=== PATIENT | female | born 1955 | race Caucasian/White ===

== ENCOUNTER 2019-03-07 10:00 | Observation (INO) ==
[2019-03-07] MEDS ORDERED: Nitroglycerin 0.4 MG TAB.SUBL SL PRN (10:09)
[2019-03-07 10:23] LABS: Basophils % 0.4 %; Eosinophils # 0.1 K/mcL (0.0-0.6); Eosinophils % 1.4 %; Hematocrit 40.3 % (35.3-44.9); Hemoglobin 12.8 g/dL (11.5-15.4); Immature Granulocytes % 0.3 % (0-4); Lymphocytes # 2.1 K/mcL (0.6-4.6); Lymphocytes % 28.6 %; Mean Corpuscular HGB Conc 31.8 g/dL (31.6-35.5); Mean Corpuscular Hemoglobin 32.3 pg (28.0-33.3); Mean Corpuscular Volume 101.8 fL (83.0-100.0); Mean Platelet Volume 9.9 fL (9.4-12.4); Monocytes # 0.4 K/mcL (0.0-1.3); Monocytes % 4.8 %; Neutrophils # 4.7 K/mcL (1.6-8.9); Platelet Count 182 K/mcL (140-400); Red Blood Count 3.96 M/mcL (3.82-4.97); Red Cell Distribution Width 13.2 % (11.5-14.5); Segmented Neutrophils % 64.5 %; White Blood Count 7.3 K/mcL (4.3-11.1)
[2019-03-07 10:29] LABS: Prothrombin Time 11.1 Seconds (9.4-12.1)
[2019-03-07 10:32] LABS: Activated Partial Thrombo Time 34.1 Seconds (26.0-36.0)
[2019-03-07] MEDS ORDERED: Prochlorperazine 10 MG/2 ML VIAL IVP ONE (10:38)
[2019-03-07] MEDS ORDERED: Aspirin 81 MG TAB.CHEW PO STA (10:43)
[2019-03-07 10:48] LABS: BUN/Creatinine Ratio 14 (6-26); Blood Urea Nitrogen 12 mg/dL (8-23); Calcium 9.4 mg/dL (8.6-10.3); Carbon Dioxide 29 mEq/L (23-29); Chloride 106 mEq/L (98-107); Glucose 107 mg/dL (70-105); Osmolality,Calculated 290 (280-300); Sodium 140 mEq/L (136-145); Troponin I < 0.03 ng/mL (< 0.04); eGFR For African Americans > 60 (> 60); eGFR For Non-African Americans > 60 (> 60)
[2019-03-07] MEDS ORDERED: Ondansetron 4 MG/2 ML VIAL IVP PRN (12:56)
[2019-03-07] MEDS ORDERED: *HR* HYDROcodone/Acet 5/325 mg TABLET PO PRN (12:56)
[2019-03-07] MEDS ORDERED: Naloxone 0.4 MG/ML INJ IVP PRN (12:56)
[2019-03-07] MEDS ORDERED: Acetaminophen 325 MG TABLET PO PRN (12:56)
[2019-03-07] MEDS ORDERED: Fluticasone Propionate Nasal 50 MCG/SPRAY BOTTLE NS PRN (13:00)
[2019-03-07] MEDS ORDERED: Diphenoxylate/Atropine 1 TAB TABLET PO SCH (13:00)
[2019-03-07] MEDS ORDERED: 0.9 % Sodium Chloride 1,000 ML IVC SCH (15:30)
[2019-03-08 07:00] LABS: Chol/HDL Ratio 2.9 (0-4.9)
[2019-03-08] MEDS ORDERED: Aspirin Enteric Coated 81 MG Tablet PO SCH (09:00)
[2019-03-08] MEDS ORDERED: Diphenoxylate/Atropine 1 TAB TABLET PO SCH (09:00)
[2019-03-08] MEDS ORDERED: Isosorbide MONOnitrate (24 HR) 30 MG TAB.ER.24H PO SCH (14:23)
[2019-03-08 15:53] VITALS: BP 132/83
[2019-03-08] MEDS ORDERED: *HR* Heparin 5,000 UNIT/ML VIAL SQ SCH (18:00)
== END 2019-03-08 17:19 | disposition home or self-care (01) ==
LOC: EMEROOARM 10:00 → 3BNU 10:00 → SUATTDRO 13:37 → 3BNU 14:05
PROVIDERS: ADMIT Family Medicine; ATTEND Internal Medicine

== ENCOUNTER 2019-04-20 08:34 | Observation (INO) ==
[2019-04-20] MEDS ORDERED: 0.9 % Sodium Chloride 1,000 ML IVC ONE (09:06)
[2019-04-20] MEDS ORDERED: *HR* FentaNYL (PF) 100 MCG/2 ML VIAL IVP ONE ×3 (09:06→11:04)
[2019-04-20 09:21] LABS: Bilirubin,Urine Negative (Negative); Blood,Urine Large (Negative); Clarity,Urine Cloudy (Clear); Glucose,Urine (UA) Normal (Normal); Ketones,Urine Negative (Negative); Leukocyte Esterase,Urine Moderate (Negative); Nitrite,Urine Negative (Negative); Protein,Urine 30 mg/dL (Neg-Trace); Specific Gravity,Urine 1.024 (1.010-1.025); Urobilinogen,Urine Normal (Normal)
[2019-04-20 09:22] LABS: Color,Urine Yellow (Yellow)
[2019-04-20 09:23] LABS: Bacteria,Urine None Seen per hpf (None-Few); Hyaline Casts,Urine None Seen per lpf (None-Few); RBC,Urine TNTC per hpf (0-3); Squamous Epithelial Cell,Urine Many per lpf (None-Few); WBC,Urine 15-30 per hpf (0-3)
[2019-04-20 09:37] LABS: Basophils % 0.4 %; Eosinophils # 0.1 K/mcL (0.0-0.6); Hematocrit 37.7 % (35.3-44.9); Immature Granulocytes % 0.3 % (0-4); Lymphocytes # 1.8 K/mcL (0.6-4.6); Lymphocytes % 25.1 %; Mean Corpuscular HGB Conc 31.8 g/dL (31.6-35.5); Mean Corpuscular Hemoglobin 31.9 pg (28.0-33.3); Mean Corpuscular Volume 100.3 fL (83.0-100.0); Monocytes # 0.4 K/mcL (0.0-1.3); Monocytes % 5.9 %; Neutrophils # 4.7 K/mcL (1.6-8.9); Platelet Count 171 K/mcL (140-400); Red Blood Count 3.76 M/mcL (3.82-4.97); Red Cell Distribution Width 12.6 % (11.5-14.5); Segmented Neutrophils % 66.3 %; White Blood Count 7.1 K/mcL (4.3-11.1)
[2019-04-20 09:59] LABS: Calcium 9.3 mg/dL (8.6-10.3); Potassium 4.6 mEq/L (3.5-5.1)
[2019-04-20] MEDS ORDERED: Ondansetron 4 MG/2 ML VIAL IVP PRN ×3 (13:59→20:14)
[2019-04-20] MEDS ORDERED: Naloxone 0.4 MG/ML INJ IVP PRN ×2 (13:59→20:14)
[2019-04-20] MEDS ORDERED: 0.9 % Sodium Chloride 1,000 ML IVC SCH ×2 (14:00→20:14)
[2019-04-20] MEDS ORDERED: ceFAZolin 2,000 MG in Water for inj. (sterile) 20 ML IVP ONE (18:03)
[2019-04-20] MEDS ORDERED: *HR* Propofol 200 MG/20 ML VIAL IVP ONE (18:18)
[2019-04-20] MEDS ORDERED: Ondansetron 4 MG/2 ML VIAL ONE (18:18)
[2019-04-20] MEDS ORDERED: *HR* FentaNYL (PF) 100 MCG/2 ML VIAL ONE (18:18)
[2019-04-20] MEDS ORDERED: *HR* Midazolam HCl 2 MG/2 ML VIAL ONE (18:18)
[2019-04-20] MEDS ORDERED: Lidocaine -MPF 2% 2 ML VIAL ONE (18:18)
[2019-04-20] MEDS ORDERED: EPHEDrine 50 MG/ML VIAL ONE (18:58)
[2019-04-20] MEDS ORDERED: Ketorolac 30 MG/ML VIAL ONE (19:00)
[2019-04-20] MEDS ORDERED: *HR* Promethazine 25 MG/ML VIAL IVP PRN (19:10)
[2019-04-20] MEDS ORDERED: *HR* Labetalol 20 MG/4 ML SYRINGE IVP PRN (19:10)
[2019-04-20] MEDS: *HR* OxyCODONE Immed Rel 5 MG TABLET PO PRN ×2 (19:33→19:48)
[2019-04-20] MEDS ORDERED: Ringers Solution, Lactated 1,000 ML ONE (20:05)
[2019-04-21 07:09] VITALS: BP 125/78
[2019-04-21 09:45] LABS: Hematocrit 35.7 % (35.3-44.9); Hemoglobin 11.5 g/dL (11.5-15.4); Mean Corpuscular HGB Conc 32.2 g/dL (31.6-35.5); Mean Corpuscular Hemoglobin 32.5 pg (28.0-33.3); Mean Corpuscular Volume 100.8 fL (83.0-100.0); Mean Platelet Volume 9.6 fL (9.4-12.4); Platelet Count 129 K/mcL (140-400); Red Blood Count 3.54 M/mcL (3.82-4.97); Red Cell Distribution Width 12.6 % (11.5-14.5); White Blood Count 6.5 K/mcL (4.3-11.1)
[2019-04-21 10:04] LABS: Calcium 8.6 mg/dL (8.6-10.3); Potassium 3.8 mEq/L (3.5-5.1)
[2019-04-25 09:51] LABS: Calculi Mass 216 mg
== END 2019-04-21 12:15 | disposition home or self-care (01) ==
LOC: EMEROOARM 08:34 → 3ANU 08:34 → SUATTDRO 12:42 → 3ANU 15:28
PROVIDERS: ADMIT Family Medicine; ATTEND Internal Medicine

== ENCOUNTER 2020-01-24 13:53 | Observation (INO) ==
[2020-01-24 14:31] LABS: Basophils % 0.5 %; Eosinophils # 0.1 K/mcL (0.0-0.6); Eosinophils % 1.4 %; Hematocrit 43.4 % (35.3-44.9); Hemoglobin 13.8 g/dL (11.5-15.4); Immature Granulocytes % 0.3 % (0-4); Lymphocytes # 3.1 K/mcL (0.6-4.6); Lymphocytes % 39.4 %; Mean Corpuscular HGB Conc 31.8 g/dL (31.6-35.5); Mean Corpuscular Hemoglobin 32.3 pg (28.0-33.3); Mean Corpuscular Volume 101.6 fL (83.0-100.0); Mean Platelet Volume 9.9 fL (9.4-12.4); Monocytes # 0.5 K/mcL (0.0-1.3); Monocytes % 6.1 %; Neutrophils # 4.1 K/mcL (1.6-8.9); Platelet Count 205 K/mcL (140-400); Red Blood Count 4.27 M/mcL (3.82-4.97); Segmented Neutrophils % 52.3 %; White Blood Count 7.8 K/mcL (4.3-11.1)
[2020-01-24] MEDS ORDERED: 0.9 % Sodium Chloride 1,000 ML IVC ONE (14:35)
[2020-01-24] MEDS ORDERED: *HR* Metoprolol 5 MG/5 ML VIAL IVP ONE (14:35)
[2020-01-24 14:53] LABS: BUN/Creatinine Ratio 20 (6-26); Blood Urea Nitrogen 17 mg/dL (8-23); Calcium 9.8 mg/dL (8.6-10.3); Carbon Dioxide 27 mEq/L (23-29); Chloride 105 mEq/L (98-107); Glucose 97 mg/dL (70-105); Magnesium 1.9 mg/dL (1.6-2.6); Osmolality,Calculated 289 (280-300); Phosphorous 3.1 mg/dL (2.7-4.5); Potassium 3.7 mEq/L (3.5-5.1); Sodium 139 mEq/L (136-145); Troponin I < 0.03 ng/mL (< 0.04); eGFR For African Americans > 60 (> 60); eGFR For Non-African Americans > 60 (> 60)
[2020-01-24 15:06] LABS: Thyroid Stimulating Hormone 0.305 mcIU/mL (0.340-5.600)
[2020-01-24 16:02] LABS: Triiodothyronine (T3) Free 3.27 pg/mL (2.50-3.90)
[2020-01-24] MEDS ORDERED: Ondansetron 4 MG/2 ML VIAL IVP PRN (17:11)
[2020-01-24] MEDS ORDERED: Naloxone 0.4 MG/ML INJ IVP PRN (17:11)
[2020-01-24] MEDS ORDERED: Perflutren Lipid Microsphere 1.3 ML in 0.9 % Sodium Chloride 8.7 ML IVP PRN (17:13)
[2020-01-24] MEDS ORDERED: *HR* Metoprolol 5 MG/5 ML VIAL IVP PRN (17:13)
[2020-01-24] MEDS ORDERED: *HR* Heparin 5,000 UNIT/ML VIAL IVP PRN ×2 (17:16)
[2020-01-24] MEDS ORDERED: *HR* Heparin 5,000 UNIT/ML VIAL IVP ONE (17:16)
[2020-01-24] MEDS ORDERED: Nitroglycerin 0.4 MG TAB.SUBL SL PRN (17:18)
[2020-01-24 18:12] LABS: Hematocrit 41.3 % (35.3-44.9); Mean Corpuscular HGB Conc 31.5 g/dL (31.6-35.5); Mean Corpuscular Hemoglobin 31.7 pg (28.0-33.3); Mean Corpuscular Volume 100.7 fL (83.0-100.0); Mean Platelet Volume 10.1 fL (9.4-12.4); Platelet Count 179 K/mcL (140-400); Red Cell Distribution Width 13.1 % (11.5-14.5); White Blood Count 7.2 K/mcL (4.3-11.1)
[2020-01-24 18:14] LABS: Heparin anti-factor XA UFH < 0.04 IU/mL (0.30-0.70)
[2020-01-24] MEDS: Aspirin 81 MG TAB.CHEW PO SCH (18:19)
[2020-01-24] MEDS: lisinopriL 10 MG TABLET PO SCH (18:19)
[2020-01-24] MEDS: Heparin 25,000UNIT/250ML 1/2NS 25,000 UNIT/250 ML IV.SOLN IVC SCH (18:55)
[2020-01-24] MEDS ORDERED: *HR* Labetalol 20 MG/4 ML SYRINGE IVP ONE (19:24)
[2020-01-24] MEDS ORDERED: Acetaminophen 325 MG TABLET PO ONE (20:47)
[2020-01-24] MEDS ORDERED: Melatonin 3 MG TABLET PO ONE (23:22)
[2020-01-25 03:24] LABS: Hematocrit 40.7 % (35.3-44.9); Mean Corpuscular HGB Conc 31.9 g/dL (31.6-35.5); Mean Corpuscular Hemoglobin 32.2 pg (28.0-33.3); Mean Corpuscular Volume 100.7 fL (83.0-100.0); Mean Platelet Volume 10.4 fL (9.4-12.4); Platelet Count 175 K/mcL (140-400); Red Blood Count 4.04 M/mcL (3.82-4.97); Red Cell Distribution Width 13.2 % (11.5-14.5); White Blood Count 8.8 K/mcL (4.3-11.1)
[2020-01-25 03:40] LABS: BUN/Creatinine Ratio 20 (6-26); Blood Urea Nitrogen 16 mg/dL (8-23); Calcium 9.2 mg/dL (8.6-10.3); Carbon Dioxide 24 mEq/L (23-29); Chloride 107 mEq/L (98-107); Glucose 103 mg/dL (70-105); Osmolality,Calculated 289 (280-300); Potassium 3.8 mEq/L (3.5-5.1); Sodium 139 mEq/L (136-145); eGFR For African Americans > 60 (> 60); eGFR For Non-African Americans > 60 (> 60)
[2020-01-25 03:41] LABS: Chol/HDL Ratio 2.6 (0-4.9); Phosphorous 4.1 mg/dL (2.7-4.5)
[2020-01-25] MEDS: lisinopriL 10 MG TABLET PO SCH (08:56)
[2020-01-25] MEDS: Aspirin 81 MG TAB.CHEW PO SCH (08:56)
[2020-01-25] MEDS: *HR* Rivaroxaban 10 MG TABLET PO SCH ×2 (16:45→17:04)
[2020-01-25] MEDS: Heparin 25,000UNIT/250ML 1/2NS 25,000 UNIT/250 ML IV.SOLN IVC SCH (16:46)
[2020-01-25] MEDS: Metoprolol 100 MG TABLET PO SCH (20:11)
[2020-01-25] MEDS ORDERED: Metoprolol 100 MG TABLET PO SCH (21:00)
[2020-01-26 02:23] LABS: Basophils % 0.4 %; Eosinophils # 0.1 K/mcL (0.0-0.6); Eosinophils % 1.7 %; Hematocrit 41.8 % (35.3-44.9); Immature Granulocytes % 0.3 % (0-4); Lymphocytes # 3.1 K/mcL (0.6-4.6); Lymphocytes % 40.9 %; Mean Corpuscular HGB Conc 31.1 g/dL (31.6-35.5); Mean Corpuscular Hemoglobin 31.6 pg (28.0-33.3); Mean Corpuscular Volume 101.5 fL (83.0-100.0); Monocytes # 0.5 K/mcL (0.0-1.3); Monocytes % 6.2 %; Neutrophils # 3.9 K/mcL (1.6-8.9); Platelet Count 155 K/mcL (140-400); Red Blood Count 4.12 M/mcL (3.82-4.97); Red Cell Distribution Width 13.2 % (11.5-14.5); Segmented Neutrophils % 50.5 %; White Blood Count 7.6 K/mcL (4.3-11.1)
[2020-01-26 02:43] LABS: BUN/Creatinine Ratio 17 (6-26); Blood Urea Nitrogen 14 mg/dL (8-23); Calcium 9.4 mg/dL (8.6-10.3); Carbon Dioxide 26 mEq/L (23-29); Chloride 106 mEq/L (98-107); Glucose 95 mg/dL (70-105); Osmolality,Calculated 290 (280-300); Sodium 140 mEq/L (136-145); eGFR For African Americans > 60 (> 60); eGFR For Non-African Americans > 60 (> 60)
[2020-01-26 07:02] VITALS: BP 123/80
[2020-01-26] MEDS: Metoprolol 100 MG TABLET PO SCH (08:38)
[2020-01-26] MEDS: Aspirin 81 MG TAB.CHEW PO SCH (08:38)
== END 2020-01-26 11:25 | disposition home or self-care (01) ==
LOC: 3BNU 13:53 → EMEROOARM 13:53 → SUATTDRO 15:59 → 3BNU 16:50
PROVIDERS: ADMIT Internal Medicine; ATTEND Student in an Organized Health Care Education/Training Program

== ENCOUNTER 2021-08-11 06:09 | Inpatient (IN) ==
[2021-08-11] MEDS ORDERED: 0.9 % Sodium Chloride 1,000 ML ONE ×2 (06:35→07:10)
[2021-08-11] MEDS ORDERED: *HR* Heparin 10,000 UNIT/10 ML VIAL ONE (07:09)
[2021-08-11] MEDS ORDERED: Protamine Sulfate 50 MG/5 ML VIAL IVP ONE (07:09)
[2021-08-11] MEDS ORDERED: ISOVUE-370 200 ML INFUS..BTL ONE (07:10)
[2021-08-11] MEDS ORDERED: Heparin 1,000 UNITS/500 mL 2,000 ML ONE (07:10)
[2021-08-11] MEDS ORDERED: *HR* FentaNYL (PF) 100 MCG/2 ML VIAL ONE (08:14)
[2021-08-11] MEDS ORDERED: *HR* Midazolam HCl 2 MG/2 ML VIAL ONE (08:14)
[2021-08-11] MEDS ORDERED: Lidocaine HCL 4 ML Topical Solution (Laryng-O-Jet Kit Sterile Pak) TP ONE (08:14)
[2021-08-11] MEDS ORDERED: *HR* Vasopressin 20 UNIT/ML VIAL ONE (08:15)
[2021-08-11] MEDS ORDERED: Acetaminophen IV 1,000 MG/100 ML BAG IVPB ONE (08:26)
[2021-08-11] MEDS ORDERED: Famotidine 20 MG/2 ML VIAL IVP ONE (08:26)
[2021-08-11] MEDS ORDERED: *HR* OxyCODONE Immed Rel 5 MG TABLET PO PRN (08:26)
[2021-08-11] MEDS ORDERED: Promethazine 6.25 MG in Water for inj. (sterile) 20 ML IVPB PRN (08:26)
[2021-08-11] MEDS ORDERED: *HR* Labetalol 20 MG/4 ML SYRINGE IVP PRN (08:26)
[2021-08-11] MEDS ORDERED: Ondansetron 4 MG/2 ML VIAL IVP PRN (08:26)
[2021-08-11] MEDS ORDERED: *HR* Rocuronium Bromide 50 MG/5 ML VIAL ONE (10:25)
[2021-08-11] MEDS ORDERED: Perflutren Lipid Microsphere 1.3 ML in 0.9 % Sodium Chloride 8.7 ML IVP PRN (11:08)
[2021-08-11] MEDS ORDERED: Nitroglycerin 0.4 MG TAB.SUBL SL SCH (11:09)
[2021-08-11] MEDS ORDERED: Nitroglycerin 0.4 MG TAB.SUBL SL PRN (12:47)
[2021-08-11] MEDS: Metoprolol 100 MG TABLET PO SCH (20:33)
[2021-08-11] MEDS ORDERED: VIT A PO SCH (21:00)
[2021-08-11] MEDS ORDERED: VIT E PO SCH (21:00)
[2021-08-11] MEDS ORDERED: VIT C PO SCH (21:00)
[2021-08-11] MEDS ORDERED: ZINC PO SCH (21:00)
[2021-08-11] MEDS ORDERED: COPPER PO SCH (21:00)
[2021-08-12 02:01] LABS: Hematocrit 37.7 % (35.3-44.9); Hemoglobin 12.4 g/dL (11.5-15.4); Immature Granulocytes % 0.3 % (0-4); Lymphocytes # 0.8 K/mcL (0.6-4.6); Lymphocytes % 12.4 %; Mean Corpuscular HGB Conc 32.9 g/dL (31.6-35.5); Mean Corpuscular Hemoglobin 32.7 pg (28.0-33.3); Mean Corpuscular Volume 99.5 fL (83.0-100.0); Mean Platelet Volume 10.1 fL (9.4-12.4); Monocytes # 0.3 K/mcL (0.0-1.3); Neutrophils # 5.7 K/mcL (1.6-8.9); Platelet Count 191 K/mcL (140-400); Red Blood Count 3.79 M/mcL (3.82-4.97); Red Cell Distribution Width 12.5 % (11.5-14.5); Segmented Neutrophils % 83.3 %; White Blood Count 6.8 K/mcL (4.3-11.1)
[2021-08-12 02:15] LABS: INR 1.1
[2021-08-12 02:19] LABS: BUN/Creatinine Ratio 18 (6-26); Blood Urea Nitrogen 16 mg/dL (8-23); Calcium 9.2 mg/dL (8.6-10.3); Carbon Dioxide 23 mEq/L (23-29); Chloride 102 mEq/L (98-107); Glucose 202 mg/dL (70-105); Osmolality,Calculated 285 (280-300); Potassium 4.2 mEq/L (3.5-5.1); Sodium 134 mEq/L (136-145); eGFR For African Americans > 60 (> 60); eGFR For Non-African Americans > 60 (> 60)
[2021-08-12 06:54] VITALS: TEMP 97.9
[2021-08-12] MEDS ORDERED: Acetaminophen 325 MG TABLET PO PRN (08:55)
[2021-08-12] MEDS ORDERED: Cyanocobalamin (B-12) 1,000 MCG TABLET PO SCH (09:00)
[2021-08-12] MEDS ORDERED: Isosorbide MONOnitrate (24 HR) 60 MG TAB.ER.24H PO SCH (09:00)
[2021-08-12] MEDS ORDERED: Aspirin Enteric Coated 81 MG Tablet PO SCH (09:00)
[2021-08-12] MEDS: Metoprolol 100 MG TABLET PO SCH (09:51)
[2021-08-12 10:07] VITALS: BP 111/57; PULSE 74; O2SAT 97
[2021-08-12] MEDS ORDERED: *HR* Rivaroxaban 10 MG TABLET PO SCH (17:00)
[2021-08-15] MEDS ORDERED: Ergocalciferol (VIT D2) 50,000 UNIT (1.25MG) CAP PO SCH (12:00)
== END 2021-08-12 13:17 | disposition home or self-care (01) | DRG 274 ==
LOC: INVDIALAB 06:09 → 2NENU 07:30
PROVIDERS: ADMIT Internal Medicine Clinical Cardiac Electrophysiology; ATTEND Internal Medicine Clinical Cardiac Electrophysiology